=== PATIENT | female | born 1990 | race African-American/Black ===

== ENCOUNTER 2022-02-22 09:13 | Emergency (ER) | payer BC, SELFPAY ==
[2022-02-22 09:51] LABS: Pregnancy Test - Urine (BHCG) Negative (Negative); Pregu Control Background? CLEAR/WHITE (CLR/WHITE); Pregu Control Bar Appear? YES (CONTROL BAR); Specific Gravity 1.025 (1.002-1.036)
== END 2022-02-22 09:58 | disposition home or self-care (01) ==
LOC: CSHERS 09:13
DX: N92.6 Irregular menstruation, unspecified (principal)
CPT/HCPCS: 81025; 99284

== ENCOUNTER 2022-04-03 16:03 | Emergency (ER) | payer BC ==
[2022-04-03 16:47] LABS: Bilirubin Neg (Negative); Blood, Urine Negative (Negative); Clarity Clear (Clear); Glucose, Urine (Dipstick) Normal (Negative); Ketone, Urine Negative (Negative); Leukocyte Negative (Negative); Nitrite Negative (Negative); Protein, Urine (Dipstick) Negative (Neg-Trace); Urobilinogen Normal mg/dL (Less than 2)
[2022-04-03 17:38] LABS: #Eosinphils 0.4 10x3/uL (0.0-0.5); #Monocytes 0.6 10x3/uL (0.0-1.1); #Neutrophils 3.6 10x3/uL (1.5-8.4); %Basophils 0.3 % (0.0-2.0); %Eosinophils 5.7 % (0.0-6.0); %Lymphocytes 29.5 % (18.0-47.0); %Monocytes 8.7 % (0.0-10.0); %Neutrophils 55.6 % (40.0-75.0); Hemoglobin 11.6 g/dL (12.0-15.5); Mean Corpuscular Hemoglobin 28.3 pg (27.0-33.0); Mean Corpuscular Volume 83.2 fl (81.6-98.3); Mean Platelet Volume 9.3 fl (7.4-10.4); Platelet Count 296 10x3/uL (150-450); RBC Distribution Width 12.3 % (11.5-14.5); White Blood Cell (WBC) Count 6.5 10x3/uL (3.5-10.5)
[2022-04-03 17:42] LABS: Pregs Control Background? CLEAR/WHITE (CLR/WHITE); Pregs Control Bar Appear? YES (CONTROL BAR)
[2022-04-03 17:43] LABS: BHCG - Serum POSITIVE (NEGATIVE)
[2022-04-03 17:52] LABS: ALT (SGPT) 13 U/L (8-55); AST (SGOT) 18 U/L (5-34); Albumin 4.1 g/dL (3.5-5.0); Alkaline Phosphatase 60 U/L (40-110); Anion Gap 12 mmol/L (10-20); BUN (Urea Nitrogen) 9 mg/dL (7.0-18.7); Bilirubin, Total 0.8 mg/dL (0.2-1.2); Calc. Creatinine Clearance 0 mL/min (70-130); Calcium 9.2 mg/dL (7.8-10.44); Carbon Dioxide 23 mmol/L (22-29); Chloride 104 mmol/L (98-107); Globulin 3.1 g/dL (2.4-3.5); Glucose 83 mg/dL (70-105); Potassium 3.8 mmol/L (3.5-5.1); Protein, Total 7.2 g/dL (6.0-8.3); Sodium 135 mmol/L (136-145)
[2022-04-04 12:00] LABS: Chlamydia by PCR Not Detected (NotDetected); GC by PCR Not Detected (NotDetected)
== END 2022-04-03 19:14 | disposition home or self-care (01) ==
LOC: CSHERS 16:03
DX: O99.891 Other specified diseases and conditions complicating pregnancy (principal); R10.33 Periumbilical pain; O99.519 Diseases of the respiratory system complicating pregnancy, unspecified trimester; J45.909 Unspecified asthma, uncomplicated; Z3A.00 Weeks of gestation of pregnancy not specified
CPT/HCPCS: 76856; 80053; 81003; 84702; 84703; 85025; 87480; 87491; 87510; 87591; 87660